=== PATIENT | female | born 1965 | race African-American/Black ===

== ENCOUNTER → 2016-10-28 | Outpatient (CLI) | payer MEDICARE, MEDICAID ==
[2016-10-28 16:39] LABS: Albumin 3.3 g/dL (3.4-5.0); BUN/Creatinine Ratio 16.3; Potassium 3.5 mmol/L (3.5-5.1)
[2016-10-28 16:43] LABS: Bilirubin, Total 0.6 mg/dL (0.2-1.0); Total Protein 7.6 g/dL (6.4-8.2); Urine Bilirubin Negative (Negative); Urine Blood Negative /uL (Negative); Urine Color Yellow (Yellow); Urine Glucose Normal (Normal); Urine Hyaline Cast FEW /lpf (0 - 2); Urine Ketone Negative (Negative); Urine Mucus FEW (None Seen); Urine Nitrite Negative (Negative); Urine RBC 1 /hpf (0 - 4); Urine Squamous Epithelial Cell FEW /hpf (<5); Urine Urobilinogen Normal (Negative); Urine pH 5.5 (5.0-8.0)
[2016-10-28 17:39] LABS: Basophils # (auto) 0 uL; Basophils % (auto) 0.2 % (0.0-2.0); DEFINITIVE VIEW TRANSMISSION; Eosinophils # (auto) 0.1 uL; Eosinophils % (auto) 1.5 % (0.0-7.0); Hematocrit 42.8 % (36.0-46.0); Hemoglobin 13.8 g/dL (12.2-16.2); Lymphocytes # (auto) 4.1 uL; Lymphocytes % (auto) 41.3 % (10.0-50.0); Mean Corpuscular Hemoglobin 25.1 pg (28.0-32.0); Mean Corpuscular Hgb Conc. 32.2 g/dL (32.0-36.0); Mean Corpuscular Volume 77.8 fL (80.0-100.0); Monocytes # (auto) 0.8 uL; Monocytes % (auto) 7.7 % (0.0-12.0); Neutrophils # (auto) 4.9 uL; Neutrophils % (auto) 49.3 % (37.0-80.0); Platelet Count (auto) 327 10^3/uL (140-450); Red Cell Distribution Width 15.9 % (11.6-16.0); White Blood Cell 9.8 10^3/uL (4.4-10.8)
[2016-10-28 19:36] LABS: Hypochromia Slight; Platelet Estimate Adequate
== END | disposition home or self-care (01) ==
LOC: LAB 15:41
PROVIDERS: ATTEND Family Medicine
DX: E78.5 Hyperlipidemia, unspecified (principal); E11.9 Type 2 diabetes mellitus without complications
CPT/HCPCS: 36415; 80053; 80061; 81001; 82043; 83036; 85025

== ENCOUNTER 2019-10-27 18:28 | Inpatient (IN) | payer MEDICARE, MEDICAID ==
[~2019-10-27] VITALS: Ht 165.1 cm; Wt 103.5 kg
[2019-10-27] MEDS ORDERED: cloNIDine HCL 0.1 MG TAB ONE (18:49)
[2019-10-27] MEDS ORDERED: cloNIDine HCL 0.1 MG TAB PO ONE (19:00)
[2019-10-27] MEDS ORDERED: LORazepam 0.5 MG TAB PO ONE (19:15)
[2019-10-27 19:27] LABS: Urine WBC None Seen /hpf (0 - 5)
[2019-10-27 19:44] LABS: Eosinophils # (auto) 0.1 10 ^3/uL (0-0.8); Hemoglobin 14.6 g/dL (12.2-16.2); Neutrophils # (auto) 3.6 10 ^3/uL (1.6-8.6); Nucleated Red Blood Cells % 0.1 %; Red Cell Distribution Width 15.7 % (11.8-14.3); White Blood Cell 8.7 10^3/uL (4.4-10.8)
[2019-10-27 19:46] LABS: Basophils # (auto) 0 10 ^3/uL (0-0.2); Basophils % (auto) 0.4 % (0.0-2.0); Eosinophils % (auto) 1.2 % (0.0-7.0); Hematocrit 43.7 % (36.0-46.0); Lymphocytes # (auto) 4.4 10 ^3/uL (0.4-5.4); Lymphocytes % (auto) 50.3 % (10.0-50.0); Mean Corpuscular Hemoglobin 26.4 pg (28.0-32.0); Mean Corpuscular Hgb Conc. 33.3 g/dL (32.0-36.0); Mean Corpuscular Volume 79.2 fL (80.0-100.0); Monocytes # (auto) 0.6 10 ^3/uL (0-1.3); Monocytes % (auto) 6.7 % (0.0-12.0); Neutrophils % (auto) 41.4 % (37.0-80.0); Platelet Count (auto) 264 10^3/uL (140-450); Red Blood Cells 5.52 10^6/uL (4.0-5.20)
[2019-10-27 19:58] LABS: Albumin 3.5 g/dL (3.4-5.0); Calcium 8.9 mg/dL (8.5-10.1)
[2019-10-27 20:01] LABS: BUN/Creatinine Ratio 21.3; Total Protein 7.8 g/dL (6.4-8.2)
[2019-10-27 20:18] LABS: Urine Bacteria NONE SEEN /hpf (None Seen); Urine Blood Negative /uL (Negative); Urine Specific Gravity 1.004 (1.001-1.035)
[2019-10-27 20:22] LABS: Potassium 2.8 mmol/L (3.5-5.1)
[2019-10-27] MEDS ORDERED: POTASSIUM EFFERVESENT TAB 25 MEQ PO ONE (20:30)
[2019-10-27] MEDS ORDERED: NITROGLYCERIN 0.4 MG SL TAB SL ONE (20:30)
[2019-10-27] MEDS ORDERED: POTASSIUM CHL 20MEQ/100ML 100 ML IV ONE (20:30)
[2019-10-27] MEDS ORDERED: ASPirin 81 mg TAB PO ONE (20:30)
[2019-10-27] MEDS ORDERED: MORPHINE SULF INJ 2 MG/ML SYRINGE 1ML IV PRN (21:30)
[2019-10-27] MEDS ORDERED: ONDANSETRON HCL 4 MG/2 ML VIAL IV PRN (21:30)
[2019-10-27] MEDS ORDERED: DEXTROSE (50%) 50ML SYRG IV PRN (21:30)
[2019-10-27] MEDS ORDERED: ACETAMINOPHEN 325 MG TAB PO PRN (21:30)
[2019-10-27] MEDS ORDERED: MORPHINE SULFATE 4 MG/ML SYR/VIAL IV PRN (21:30)
[2019-10-27] MEDS ORDERED: NITROGLYCERIN 0.4 MG SL TAB SL PRN ×2 (21:30)
[2019-10-27] MEDS: CARVEDILOL 3.125 MG TAB PO SCH (22:00)
[2019-10-27] MEDS ORDERED: ENOXAPARIN SOD 60 MG/0.6 ML SYRINGE SC SCH (22:00)
[2019-10-27] MEDS: cloNIDine HCL 0.1 MG TAB PO SCH (22:00)
[2019-10-27] MEDS: ATORVASTATIN 20 MG TAB PO SCH (22:57)
--- NOTE | 2019-10-27 23:16 | NUR ---
Admission Note Pt admitted to room 273-A on remote tele in stable cond. Pt arrived via w/c escorted by ER staff. Pt amb to the bed with cane and noted to have steady gait. Pt oriented to room and procedures and POC discussed with pt. PT verbalizes understanding. Vinicio RN at bedside to obtain admission hx. Pt denies any pain or SOB at this time. Bed is low, wheels are locked, and call light is with in reach.
[2019-10-27 23:25] VITALS: BP 172/85
[2019-10-27 23:48] VITALS: BP 173/85
--- NOTE | 2019-10-28 00:09 | NUR ---
pt refuses ss Insulin at this time for glucose of 147. Pt states that , " I would like to wait until the 0400 glucose check and if it is still above normal than I will take the Insulin. "
[2019-10-28] MEDS: ACCU-CHEK COMFORT CURVE STRIP VI SCH ×6 (00:24→21:02)
[2019-10-28 05:00] VITALS: BP 166/93
[2019-10-28] MEDS: InsuLIN REG 1unit/0.01ml Soln (100units/ml) SC SCH ×6 (05:18→20:00)
[2019-10-28] MEDS: cloNIDine HCL 0.1 MG TAB PO SCH ×3 (05:19→18:03)
[2019-10-28 06:22] LABS: Basophils # (auto) 0 10 ^3/uL (0-0.2); Eosinophils # (auto) 0.1 10 ^3/uL (0-0.8); Eosinophils % (auto) 1.2 % (0.0-7.0); Hemoglobin 13.2 g/dL (12.2-16.2); Monocytes # (auto) 0.6 10 ^3/uL (0-1.3)
[2019-10-28 06:24] LABS: Basophils % (auto) 0.3 % (0.0-2.0); Hematocrit 40.9 % (36.0-46.0); Lymphocytes # (auto) 3.6 10 ^3/uL (0.4-5.4); Lymphocytes % (auto) 43.8 % (10.0-50.0); Mean Corpuscular Hemoglobin 25.8 pg (28.0-32.0); Mean Corpuscular Hgb Conc. 32.3 g/dL (32.0-36.0); Mean Corpuscular Volume 79.9 fL (80.0-100.0); Monocytes % (auto) 7.3 % (0.0-12.0); Neutrophils # (auto) 3.9 10 ^3/uL (1.6-8.6); Neutrophils % (auto) 47.4 % (37.0-80.0); Platelet Count (auto) 229 10^3/uL (140-450); Red Blood Cells 5.12 10^6/uL (4.0-5.20); Red Cell Distribution Width 15.6 % (11.8-14.3); White Blood Cell 8.1 10^3/uL (4.4-10.8)
[2019-10-28 06:37] LABS: BUN/Creatinine Ratio 21.2; Calcium 8.7 mg/dL (8.5-10.1); Potassium 3.9 mmol/L (3.5-5.1)
--- NOTE | 2019-10-28 07:19 | NUR ---
Opening Shift Note: Assumed care of patient, awake and alert. No S/S of distress/SOB or pain. Bed in lowest locked position, side rails up x 2, call light within reach. Patient instructed on POC and to call for assist PRN, will continue to monitor for changes Q1hr and PRN.
[2019-10-28 09:00] VITALS: BP 159/101
[2019-10-28] MEDS: HCTZ 25 MG TAB PO SCH (09:48)
[2019-10-28] MEDS: CLOPIDOGREL BISULFATE 75 MG TAB PO SCH (09:48)
[2019-10-28] MEDS: FUROSEMIDE 20 MG TAB PO SCH (09:48)
[2019-10-28] MEDS: ASPirin 81 mg TAB PO SCH (09:49)
[2019-10-28] MEDS: LISINOPRIL 20 MG TAB PO SCH (09:49)
[2019-10-28] MEDS: CARVEDILOL 3.125 MG TAB PO SCH ×2 (09:50→22:00)
[2019-10-28] MEDS: DOCUSATE SOD 100 MG CAP PO SCH (09:50)
[2019-10-28] MEDS ORDERED: LISINOPRIL 20 MG TAB PO SCH (10:00)
[2019-10-28] MEDS ORDERED: ENOXAPARIN SOD 100 MG/1 ML SYRINGE SC SCH (10:00)
--- NOTE | 2019-10-28 12:12 | NUR ---
DR MORENO: DR. CARLOS AT BEDSIDE. DISCUSSED POC WITH PATIENT. PATIENT VERBALLY AGREED.
[2019-10-28] MEDS ORDERED: MORPHINE SULF INJ 2 MG/ML SYRINGE 1ML IV PRN (12:15)
[2019-10-28 12:39] VITALS: BP 172/110
--- NOTE | 2019-10-28 18:00 | NUR ---
BLOOD PRESSURE BP 202/101. TALYA VEGA NP NOTIFIED, NO NEW ORDERS AT THIS TIME. ORDERED MEDICATIONS GIVEN. WILL REASSESS.
--- NOTE | 2019-10-28 19:02 | NUR ---
BLOOD PRESSURE RECHECK BP 217/107. HEART RATE 48. TALYA VEGA NP NOTIFIED. NEW ORDERS RECEIVED. READ BACK AND VERIFIED.
[2019-10-28] MEDS ORDERED: hydrALAZINE HCL 20 MG/ML VL IV ONE (19:15)
--- NOTE | 2019-10-28 19:27 | NUR ---
CLOSING NOTE: PATIENT RESTING IN BED. NO S/S OF PAIN, DISTRESS OR SOB AT THIS TIME. AWAITING PHARMACY VERIFICATION FOR MEDICATION. CARE ENDORSED TO NOC RN.
--- NOTE | 2019-10-28 19:38 | NUR ---
Opening Shift Note Received report and assumed care of patient. Patient is awake and alert. No signs or symptoms of distress noted, patient currently denies pain. Instructed patient on plan of care and to call for assistance as needed. Will continue to monitor.
[2019-10-28 20:55] VITALS: BP 130/80
[2019-10-28] MEDS: ATORVASTATIN 20 MG TAB PO SCH (23:07)
[2019-10-29] MEDS: cloNIDine HCL 0.1 MG TAB PO SCH ×5 (00:09→23:06)
[2019-10-29] MEDS: ACCU-CHEK COMFORT CURVE STRIP VI SCH ×7 (00:09→23:12)
[2019-10-29] MEDS: InsuLIN REG 1unit/0.01ml Soln (100units/ml) SC SCH ×7 (00:11→23:12)
[2019-10-29 05:49] VITALS: BP 156/82
--- NOTE | 2019-10-29 07:42 | NUR ---
BLOOD PRESSURE BP- 192/102. HR-50. PAGED HOSPITALIST AT THIS TIME. AWAITING CALL BACK.
[2019-10-29 09:00] VITALS: BP 192/102
[2019-10-29] MEDS: ASPirin 81 mg TAB PO SCH (09:25)
[2019-10-29] MEDS: CLOPIDOGREL BISULFATE 75 MG TAB PO SCH (09:25)
[2019-10-29] MEDS: POTASSIUM CHL 20 Meq TABLET PO SCH (09:25)
[2019-10-29] MEDS: LISINOPRIL 20 MG TAB PO SCH (09:26)
[2019-10-29] MEDS: FUROSEMIDE 20 MG TAB PO SCH (09:26)
[2019-10-29] MEDS: DOCUSATE SOD 100 MG CAP PO SCH (09:27)
[2019-10-29] MEDS: HCTZ 25 MG TAB PO SCH (09:27)
[2019-10-29] MEDS: CARVEDILOL 3.125 MG TAB PO SCH ×2 (09:27→21:53)
--- NOTE | 2019-10-29 10:57 | NUR ---
PAIN Patient states pain "2/10 in head." Patient also states nausea. Patient denied medication for pain and nausea at this time. Will continue to monitor.
[2019-10-29] MEDS ORDERED: ADENOSINE 90 MG in GIVE UN-DILUTED 0 ML IV STA (11:18)
--- NOTE | 2019-10-29 11:31 | NUR ---
PAIN REASSESSMENT PATIENT STATES NO PAIN AT THIS TIME, 0/10. WILL CONTINUE TO MONITOR.
[2019-10-29] MEDS ORDERED: cloNIDine HCL 0.1 MG TAB PO PRN (11:45)
--- NOTE | 2019-10-29 11:47 | NUR ---
DR MORENO: DR. CARLOS AT BEDSIDE. DISCUSSED POC WITH PATIENT. PATIENT VERBALLY AGREED. WILL CONTINUE TO MONITOR.
--- NOTE | 2019-10-29 12:15 | NUR ---
Patient off unit for stress test.
[2019-10-29 12:39] VITALS: BP 182/92
--- NOTE | 2019-10-29 13:30 | NUR ---
ULTRASOUND CALLED ULTRASOUND AT THIS TIME, PATIENT IS PENDING RENAL ARTERY US.
[2019-10-29 14:46] LABS: Cholesterol 211 mg/dL (< 200); HDL Cholesterol 46 mg/dL (40-59); LDL Cholesterol 154 mg/dL (< 100); Triglycerides 118 mg/dL (< 150)
--- NOTE | 2019-10-29 19:15 | NUR ---
CLOSING NOTE: PATIENT RESTING IN BED. NO S/S OF PAIN, DISTRESS OR SOB AT THIS TIME. CARE ENDORSED TO NOC RN.
--- NOTE | 2019-10-29 19:33 | NUR ---
Opening Shift Note Received report and assumed care of patient. Patient is awake and alert. No signs or symptoms of distress noted. Instructed patient on plan of care and to call for assistance as needed. Family at bedside. Will continue to monitor.
[2019-10-29] MEDS: ATORVASTATIN 20 MG TAB PO SCH (21:51)
[2019-10-29 22:00] VITALS: BP 199/98
[2019-10-30] MEDS ORDERED: hydrALAZINE HCL 20 MG/ML VL IV ONE ×2 (00:45→02:45)
--- NOTE | 2019-10-30 00:56 | NUR ---
Elevated blood pressure Patient blood pressure 174/94 after administration of scheduled and PRN blood pressure medications. Paged hospitalist, received order for hydralazine 5mg IV ONCE. Order read back and verified. Will carry out and continue to monitor.
--- NOTE | 2019-10-30 02:54 | NUR ---
Blood pressure reassessment Patient blood pressure reassessed to 184/97. Paged hospitalist, received order for hydralazine 10mg IV ONCE. Order read back and verified. Will carry out and continue to monitor.
[2019-10-30] MEDS: InsuLIN REG 1unit/0.01ml Soln (100units/ml) SC SCH ×4 (04:00→17:00)
[2019-10-30] MEDS: ACCU-CHEK COMFORT CURVE STRIP VI SCH ×5 (04:15→21:11)
[2019-10-30 05:00] VITALS: BP 135/78
--- NOTE | 2019-10-30 05:00 | NUR ---
Blood pressure reassessment Blood pressure reassessed to 135/78. Will continue to monitor.
[2019-10-30] MEDS: cloNIDine HCL 0.1 MG TAB PO SCH ×2 (06:20→12:00)
--- NOTE | 2019-10-30 07:20 | NUR ---
OPENING NOTE ASSUMED CARE OF PT. ALERT AND ORIENTED. NO S/S OF SOB/DISTRESS NOTED. SAFETY PRECAUTIONS IN PLACE. BED SET TO LOWEST POSITION/LOCKED, BEDSIDE RAIL UP X2, CALL LIGHT WITHIN REACH. INSTRUCTED PT TO CALL FOR ASSISTANCE. UPDATED ON POC. PT VERBALIZED UNDERSTANDING. WILL CONTINUE TO MONITOR Q1HR AND PRN.
[2019-10-30 09:00] VITALS: BP 181/94
[2019-10-30] MEDS: POTASSIUM CHL 20 Meq TABLET PO SCH (09:12)
[2019-10-30] MEDS: ASPirin 81 mg TAB PO SCH (09:12)
[2019-10-30] MEDS: CLOPIDOGREL BISULFATE 75 MG TAB PO SCH (09:12)
[2019-10-30] MEDS: LISINOPRIL 20 MG TAB PO SCH (09:12)
[2019-10-30] MEDS: DOCUSATE SOD 100 MG CAP PO SCH (09:12)
[2019-10-30] MEDS: HCTZ 25 MG TAB PO SCH (09:13)
[2019-10-30] MEDS: FUROSEMIDE 20 MG TAB PO SCH (09:13)
[2019-10-30] MEDS: CARVEDILOL 3.125 MG TAB PO SCH ×2 (09:14→21:09)
[2019-10-30 12:55] VITALS: BP 151/85
[2019-10-30] MEDS ORDERED: DEXTROSE (50%) 50ML SYRG IV PRN (14:00)
--- NOTE | 2019-10-30 14:45 | NUR ---
LEFT MESSAGE FOR DR. AYALA AT HIS OFFICE WITH [employer]: STRESS TEST RESULTS, AWAITING CALL BACK.
[2019-10-30] MEDS ORDERED: cloNIDine HCL 0.1 MG TAB PO PRN (16:45)
[2019-10-30] MEDS ORDERED: hydrALAZINE HCL 25 MG TAB PO ONE (16:45)
[2019-10-30 17:03] VITALS: BP 182/99
--- NOTE | 2019-10-30 18:16 | NUR ---
SPOKE WITH VIA TELEPHONE RE: DISCHARGE CLEARANCE. PER DR. DA SILVA PATIENT IS CLEARED FOR DISCHARGE.
--- NOTE | 2019-10-30 19:15 | NUR ---
assumed care, pt. awake, no c/o pain, not in distress.
[2019-10-30] MEDS: ATORVASTATIN 20 MG TAB PO SCH (21:10)
[2019-10-30] MEDS: hydrALAZINE HCL 25 MG TAB PO SCH (21:10)
[2019-10-30 22:00] VITALS: BP 136/78
[2019-10-30] MEDS ORDERED: InsuLIN REG 1unit/0.01ml Soln (100units/ml) SC SCH (22:00)
[2019-10-31 05:00] VITALS: BP 179/87
[2019-10-31] MEDS: InsuLIN REG 1unit/0.01ml Soln (100units/ml) SC SCH ×2 (06:08→11:30)
[2019-10-31] MEDS: ACCU-CHEK COMFORT CURVE STRIP VI SCH ×2 (06:09→11:43)
[2019-10-31 09:00] VITALS: BP 183/83
[2019-10-31] MEDS: ASPirin 81 mg TAB PO SCH (09:16)
[2019-10-31] MEDS: hydrALAZINE HCL 25 MG TAB PO SCH (09:17)
[2019-10-31] MEDS: CARVEDILOL 3.125 MG TAB PO SCH (09:19)
[2019-10-31] MEDS: HCTZ 25 MG TAB PO SCH (09:19)
[2019-10-31] MEDS: CLOPIDOGREL BISULFATE 75 MG TAB PO SCH (09:20)
[2019-10-31] MEDS: FUROSEMIDE 20 MG TAB PO SCH (09:20)
[2019-10-31] MEDS: LISINOPRIL 20 MG TAB PO SCH (09:20)
[2019-10-31] MEDS: POTASSIUM CHL 20 Meq TABLET PO SCH (09:20)
[2019-10-31] MEDS: DOCUSATE SOD 100 MG CAP PO SCH (09:29)
[2019-10-31 12:27] VITALS: BP 183/83
[2019-10-31 13:00] VITALS: BP 134/79
--- NOTE | 2019-10-31 13:00 | NUR ---
DISCHARGED Discharge instructions given as ordered. Patient is to follow up with Dr. Kraus on 11/12/2019 at 11:00AM, [id number] [place] [id number], . New prescriptions given to patient. All questions and concerns addressed. Patient verbalized understanding. IV removed with catheter intact, pressure dressing applied. Telemetry unit returned to ICU.
--- NOTE | 2019-10-31 13:14 | NUR ---
TELE MONITOR TELE BOX #[id number] SENT BACK TO ICU. 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
--- NOTE | 2019-10-31 13:39 | NUR ---
Patient taken to vehicle via wheelchair with all personal belongings, accompanied by staff and family member. No distress noted at time of departure.
== END 2019-10-31 13:43 | disposition home health service (06) | DRG 304 ==
LOC: ER 18:30 → TELE 18:31 → TELE-WESTW 23:16
PROVIDERS: ADMIT Hospitalist; ATTEND Family Medicine
DX: I16.0 Hypertensive urgency (principal); I50.23 Acute on chronic systolic (congestive) heart failure; I69.354 Hemiplegia and hemiparesis following cerebral infarction affecting left non-dominant side; F41.9 Anxiety disorder, unspecified; R51 Headache; E87.6 Hypokalemia; I11.0 Hypertensive heart disease with heart failure; E78.5 Hyperlipidemia, unspecified; E78.00 Pure hypercholesterolemia, unspecified; E11.21 Type 2 diabetes mellitus with diabetic nephropathy; E11.40 Type 2 diabetes mellitus with diabetic neuropathy, unspecified; Z79.899 Other long term (current) drug therapy; N28.9 Disorder of kidney and ureter, unspecified; Z88.8 Allergy status to other drugs, medicaments and biological substances
CPT/HCPCS: 36415; 70450; 71046; 78452; 80048; 80053; 80061; 81001; 82962; 83036; 83880; 84484; 85025; 93005; 93017; 93306; 93975; 96360; 96372; G0378; J0153; J1815; J3480